=== PATIENT | female | born 1930 | race Caucasian/White ===

== ENCOUNTER 2017-05-10 13:12 | Emergency (ER) | payer MEDICARE, BC ==
[2017-05-10] MEDS ORDERED: METHYLPREDNISOLONE PF 125MG/VIAL IVP ONE (13:22)
[2017-05-10] MEDS ORDERED: IPRATROPIUM/ALBUTEROL (0.5MG/3MG) NEB INH ONE (13:22)
--- NOTE | 2017-05-10 13:25 | Emergency Department Record ---
History of Present Illness - General Chief complaint: Cold Stated complaint: CHEST CONGESTION Time Seen by Provider: 05/10/17 13:16 Source: Patient, Family Mode of Arrival: Ambulatory Limitations: No limitations - History of Present Illness Initial comments: 86 yo female presents with shortness of breath, cough and wheezing. No fevers. The symptoms started mid week. He had been congested as well. Over the last 4 days the symptoms have increased. She is having wheezing and shortness of breath with activity. No chest pain. No fever. Her cough has been non productive. Her sinus have been draining with pressure as well. The nasal drainage is clear. The patient has a history of DM, HTN, Renal Disease, Dementia, Depression, thyroid, OA. MD complaint: Other (Cough, wheezing and short of breath.) -: Days(s) (4) Severity: Moderate Consistency: Constant Improves with: Rest Worsens with: Other (Cough, activity) Associated Symptoms: Cough - Related Data Home Medications Medication Instructions Recorded Confirmed Last Taken Aspirin [Aspirin EC] 81 mg PO DAILY 05/10/17 05/10/17 05/10/17 Cholecalciferol (Vitamin D3) 1,000 unit PO DAILY 05/10/17 05/10/17 05/10/17 [Vitamin D3] Donepezil HCl [Aricept] 10 mg PO QHS 05/10/17 05/10/17 05/09/17 Ipratropium [place] 15 ml NS QID 05/10/17 05/10/17 05/10/17 Levothyroxine Sodium 25 mcg PO DAILY 05/10/17 05/10/17 05/10/17 Loratadine 10 mg PO DAILY 05/10/17 05/10/17 05/10/17 Lovastatin 40 mg PO QHS 05/10/17 05/10/17 05/09/17 Meclizine HCl [Antivert] 25 mg PO Q8H 05/10/17 05/10/17 05/10/17 Melatonin 300 mcg PO QHS 05/10/17 05/10/17 05/09/17 Metformin HCl 500 mg PO DAILY 05/10/17 05/10/17 05/10/17 Mirabegron [Myrbetriq] 25 mg PO DAILY 05/10/17 05/10/17 05/10/17 Primidone 50 mg PO QHS 05/10/17 05/10/17 05/09/17 Sertraline HCl [Zoloft] 50 mg PO DAILY 05/10/17 05/10/17 05/10/17 Triamterene/Hydrochlorothiazid 1 each PO DAILY 05/10/17 05/10/17 05/10/17 [Triamterene-Hctz 37.5-25 mg Cp] Previous Rx's Medication Instructions Recorded Azithromycin [Zithromax] 250 mg PO DAILY #4 tab 05/10/17 Loratadine [Claritin] 10 mg PO DAILY #14 tablet 05/10/17 Prednisone [Prednisone 20Mg] 20 mg PO BID #10 tab 05/10/17 Allergies Allergy/AdvReac Type Severity Reaction Status Date / Time codeine Allergy HIVES Verified 05/10/17 13:37 cortisone Allergy HIVES Verified 05/10/17 13:37 pentazocine [From [facility]] Allergy PT UNSURE Verified 05/10/17 13:37 OF REACTION adhesive tape AdvReac RASH Verified 05/10/17 13:37 Review of Systems Constitutional: Reports: Malaise, Weakness. Denies: Chills, Fever Eyes: Denies: Eye discharge, Eye pain, Photophobia, Vision change ENT: Reports: Congestion. Denies: Ear pain, Epistaxis Respiratory: Reports: Cough, Dyspnea, Wheezes Cardiovascular: Denies: Chest pain, Syncope Endocrine: Reports: Fatigue Gastrointestinal: Denies: Abdominal pain, Diarrhea, Nausea, Vomiting Genitourinary: Denies: Dysuria, Urgency Musculoskeletal: Denies: Arthralgia, Back pain, Myalgia, Neck pain Skin: Denies: Bruising, Change in color, Rash Neurological: Denies: Headache, Numbness, Weakness Psychiatric: Denies: Anxiety Hematological/Lymphatic: Denies: Anemia, Blood Clots, Easy bleeding, Easy bruising, Swollen glands Physical Exam - General General Appearance: Alert, Oriented x3, Cooperative, Anxious - Head Head exam: Atraumatic, Normocephalic, Normal inspection - Eye Eye exam: Normal appearance. negative: Conjunctival injection, Scleral icterus - ENT ENT exam: Normal exam, Mucous membranes moist Ear exam: Normal external inspection Nasal Exam: Normal inspection Mouth exam: Normal external inspection Teeth exam: Normal inspection Throat exam: Normal inspection. negative: Tonsillar erythema, Tonsillar exudate - Neck Neck exam: Normal inspection, Full ROM. negative: Tenderness - Respiratory Respiratory exam: Accessory muscle use, Decreased breath sounds, Prolonged expiratory, Rhonchi, Wheezes. negative: Normal lung sounds bilaterally - Cardiovascular Cardiovascular Exam: Regular rate, Normal rhythm, Normal heart sounds Peripheral Pulses: 2+: Radial (R), Radial (L) - GI/Abdominal GI/Abdominal exam: Soft. negative: Tenderness - Rectal Rectal exam: Deferred - exam: Deferred - Extremities Extremities exam: Normal inspection, Full ROM, Normal capillary refill. negative: Tenderness - Back Back exam: Reports: Normal inspection, Full ROM. Denies: Muscle spasm, Rash noted, Tenderness - Neurological Neurological exam: Alert, Normal gait, Oriented X3 - Psychiatric Psychiatric exam: Normal affect, Normal mood - Skin Skin exam: Dry, Intact, Normal color, Warm Course - Reevaluation(s) Reevaluation #1: 05/10/17 13:34 No previous records on the EMR 05/10/17 13:40 EKG Sinus rhythm, rate of 56, intervals normal, axis left, poor R wave progression, artifact due to tremor inferior lateral, NS EKG changes. No old EKG on file. 05/10/17 13:56 The patient was rechecked after the Duoneb. Her wheezing was much improved. Her air exchanged improved. 05/10/17 14:10 The CBC was reviewed. NO acute changes 05/10/17 14:17 The Influenza are negative 05/10/17 14:42 The CXR was read as no acute infiltrate. She has some hyperinflation. The CMP was negative The Troponin was negative after several days of her respiratory symptoms The BNP was normal. No sign of inflection. 05/10/17 15:09 The vitals were again reviewed No hypoxia The patient feels a return of the wheezy at times. 05/10/17 15:11 The patient continues to do very well. Her wheezing is gone. No hypxia. In the past she has used inhalers with upper respiratory issues. I will have Rt teach and dispense an inhaler as well. she will be treated with Zithromax, Prednisone and an inhaler. She is very relaxed and non labored after care at this point. She wants to go home. She has a reliable daughter who will be with her. We discussed home care, reasons to return and close follow up with the PCP. 05/10/17 15:20 RT is in the room for teach and dispense an albuterol inhaler 05/10/17 15:38 The patient also requests a refill on her Claritin as her sinus and allergy symptoms have increased this week. Medical Decision Making - Lab Data Result diagrams: 05/10/17 13:50 05/10/17 13:50 Disposition Disposition: Discharge Clinical Impression: Wheezy bronchitis Disposition: Home, Self-Care Condition: (1) Good Instructions: Wheezing (ED) Additional Instructions: Call your doctor for close follow up this week Return to the ER if you have any fever, short of breath, or any new concerns Take the Zithromax once daily Take the Prednisone twice daily Use the inhaler every 4 hours IF needed Prescriptions: Azithromycin [Zithromax] 250 mg PO DAILY #4 tab Loratadine [Claritin] 10 mg PO DAILY #14 tablet Prednisone [Prednisone 20Mg] 20 mg PO BID #10 tab Forms: Patient Portal Access Time of Disposition: 15:39 Quality - Quality Measures Quality Measures: N/A - Blood Pressure Screening Does Patient Have Any of the Following: No Blood Pressure Classification: Normal BP Reading Systolic Measurement: 119 Diastolic Measurement: 60 Screening for High Blood Pressure: < Normal BP, F/U Not Required > [G8783] Pre-Hypertensive Follow-up Interventions: Referral to alternative/primary care provider.
[2017-05-10 14:00] LABS: BASO % 0.4 % (0-6); GRAN % 65.5 % (47-80); HEMATOCRIT 37.5 % (35.0-47.0); HEMOGLOBIN 12.5 gm/dl (11.6-16.0); LYMPH % 25.2 % (16-45); MEAN CORPUSCULAR HEMOGLOBIN 30.3 pg (27-33); MEAN CORPUSCULAR HGB CONC 33.3 g/dl (32-36); MEAN PLATELET VOLUME 10.2 fl (7.4-10.4); MONO % 8.9 % (0-9); PLATELET COUNT 199 K/uL (130-400); RED BLOOD COUNT 4.12 M/uL (3.80-5.40); RED CELL DISTRIBUTION WIDTH 13.8 % (11.5-14.5); WHITE BLOOD COUNT W/O DIFF 5.4 K/uL (4.2-12.2)
[2017-05-10 14:12] LABS: BILIRUBIN,TOTAL 0.4 mg/dL (0.2-1.0); CREATININE 1.1 mg/dL (0.5-0.9)
[2017-05-10 14:13] LABS: TOTAL PROTEIN 7.5 g/dL (6.6-8.7)
[2017-05-10 14:15] LABS: INFLUENZA A NEGATIVE (NEGATIVE); INFLUENZA B NEGATIVE (NEGATIVE)
[2017-05-10 14:18] LABS: ALB/GLOB RATIO 1.1 (1.1-1.8)
[2017-05-10 14:25] LABS: NTpro B-NATRIURETIC PEPTIDE 186.5 pg/mL (<450)
[2017-05-10] MEDS ORDERED: AZITHROMYCIN 500 MG TABLET PO ONE (14:43)
[2017-05-10] MEDS ORDERED: ALBUTEROL HFA 8 GM INHALER INH ONE (15:19)
--- NOTE | 2017-05-11 07:56 | RADIOLOGY REPORT ---
EXAM: CHEST, TWO VIEWS HISTORY: DIFFICULTY IN BREATHING. TECHNIQUE: Frontal and lateral views of the chest were performed. FINDINGS: The heart size is normal. The lungs are hyperinflated. No infiltrate or pleural effusion. There is osteopenia. IMPRESSION: HYPERINFLATED LUNGS. NO ACUTE PROCESS. JOB NUMBER: [id number] MTDD
== END 2017-05-10 15:53 | disposition home or self-care (01) ==
LOC: ER 13:12
DX: J20.9 Acute bronchitis, unspecified (principal); R06.2 Wheezing; R06.02 Shortness of breath; I10 Essential (primary) hypertension; E11.9 Type 2 diabetes mellitus without complications
CPT/HCPCS: 71020; 80053; 83880; 84484; 85025; 87400; 93005; 93010; 94640; 94664; 96374; 99284; J2930